=== PATIENT | female | born 1965 | race African-American/Black ===

== ENCOUNTER 2025-02-24 08:50 | Emergency (ER) | payer MEDICAID ==
[~2025-02-24] VITALS: Ht 170.2 cm; Wt 76.0 kg
[2025-02-24 08:52] VITALS: O2SAT 98
[2025-02-24] MEDS: KETOROLAC 30MG/ML VIAL IM ONE (10:12)
[2025-02-24 11:12] VITALS: BP 180/85; PULSE 66; RESP 20; TEMP 37.1; O2SAT 100
[2025-02-24] MEDS: ACETAMINOPHEN 325MG TABLET PO ONE (11:12)
== END 2025-02-24 11:25 | disposition home or self-care (01) ==
LOC: ER 08:50
DX: M25.512 Pain in left shoulder (principal)
CPT/HCPCS: 73030; 96372; 99284; J1885; Z7610 ×3